=== PATIENT | male | born 1950 | race Caucasian/White ===

== ENCOUNTER → 2016-10-25 | Day surgery (SDC) | payer MEDICARE, OTHER ==
[~2016-10-25] VITALS: Ht 179.1 cm; Wt 102.8 kg
[~2016-10-25] MED LIST: *HYDROmorphone PF 1 MG VIAL PERIprocedural Use ONLY ONE; *RESP: ALBUTEROL 2.5 MG/3 ML NEB (PRN) PERIprocedural Use ONLY NEB ONE; *morphine SULFATE 8 MG/ML PERIprocedure ONLY ONE; ACETAMINOPHEN 1000 MG/100 ML VIAL IV ONE; ACETAMINOPHEN/HYDROcodone 325 MG/7.5 MG TAB PO PRN; BUPIVACAINE/EPINEPHRINE 0.25% PF 10 ML VIAL ONE; CHLORHEXIDINE GLUCONATE 2 % 1 PACK (2 CLOTHS) TOPICAL PRN; CHLORHEXIDINE GLUCONATE 4% SOLN 120 ML BTL TOPICAL SCH; FAMOTIDINE 20 MG/2 ML VIAL ONE; GENTAMICIN SULFATE 80 MG/2 ML VIAL ONE; HYDR-3288 PO; INSULIN HUMAN REGULAR 1,000 UNITS/10 ML VIAL SQ PRN; KETOROLAC TROMETHAMINE 30 MG/ML (IVP) VIAL IV PUSH ONE; KETOROLAC TROMETHAMINE 60 MG/2 ML (IM) VIAL IM ONE; LACTATED RINGER'S 1000 ML INJ 1,000 ML IV ONE; LACTATED RINGER'S 1000 ML INJ 1,000 ML ONE; LACTATED RINGER'S 1000 ML IV PRN; METOPROLOL TARTRATE 25 MG TAB PO PRN; MIDAZOLAM HCL 2 MG/2 ML VIAL ONE; MORPHINE SULFATE 4 MG/ML INJ IV PUSH PRN; NEOSTIGMINE 3 MG/3 ML SYR IV ONE; ONDANSETRON HCL 4 MG/2 ML VIAL IV PUSH ONE; PERC10TA27 PO; POVIDONE IODINE 5% (ANTISEPSIS KIT) 4 APPLICATIONS EACH NARE PRN; PROPOFOL 200 MG/20 ML AMP IV ONE; SODIUM CHLOR 0.9% 250 ML INJ 250 ML ONE; SODIUM CHLORID 0.9% 500 ML IV PRN; SODIUM CHLORIDE 0.9% FLUSH 10 ML FLUSH IV FLUSH PRN; SODIUM CHLORIDE 0.9% FLUSH 10 ML FLUSH IV FLUSH SCH; VANCOMYCIN 1000 MG/NS 250 ML (for <70 kg) IV SCH; VANCOMYCIN HCL 1000 MG VIAL ONE; ceFAZolin 2 GM PREMIX 50 ML IV SCH; ceFAZolin 2 GM PREMIX 50 ML ONE; ePHEDrine/NS 25 MG/5 ML SYR IV ONE; fentaNYL CITRATE 250 MCG/5 ML AMP ONE
[2016-10-25 06:08] VITALS: BP 149/81; PULSE 57; RESP 18; TEMP 98; O2SAT 98
--- NOTE | 2016-10-25 08:47 | PD.OP ---
cc: Ranjan Hernandez MD Operative Report Date of Surgery: Oct 25, 2016 Preoperative Diagnosis: Painful hardware left proximal tibia Postoperative Diagnosis: Procedure: Removal deep hardware left tibia Anesthesia: Gen. Surgeon: Ranjan Hernandez [employer]atch Plant Supervisor(s): YANI Nunez PA-C The surgical procedure was assisted by my physician human resources office assistant. My P.A. presence was necessary throughout this case for the manipulation and positioning of the surgical extremity. My P.A. was assisting me throughout the duration of this procedure. The skill set of a physician human resources office assistant was medically necessary to complete this procedure. During the surgical case the surgical scrub technician was working at the back table and the physician human resources office assistant was directly assisting me. Operation and Findings: Dewayne is known to me from previous open reduction internal fixation left tibial plateau fracture. He has developed significant pain around the hardware. He is also developing left knee osteoarthritis. He understands he may need a total knee arthroplasty in the future. Patient wished to have hardware removed to help with hardware pain as well as for possible preparation for future total knee replacement. Informed consent was confirmed. Operative site was marked. He was brought to operating room. He was given IV sedation and general anesthesia. He received IV antibiotics. Left leg was prepped with alcohol followed by Hibiclens and draped usual sterile fashion. Timeout procedure was performed. Procedure began with a 4 inch incision through the proximal surgical scar. Subcutaneous tissue dissected with Bovie. Iliotibial band was split in line with fibers. The proximal hardware was now exposed. Scar tissue was incised around the plate. Each of the screws was now loosened using a screwdriver. A drill was now used to remove the proximal screws. Multiple per case incisions were made over the distal shaft screws. Fluoroscopy was used to help localize the screws. Screws were again reduced with a screwdriver. Screws were now removed with the drill. Osteotomes were used to elevate the plate. The plate was now removed. Fluoroscopy confirmed that all hardware had been removed. Incision was thoroughly irrigated. Fascia was closed with #1 Vicryl, subcutaneous tissues closed with 3-0 Vicryl and skin was closed with jimena. Sterile dressings were applied. Patient was transferred to recovery room in stable condition. Needle sponge counts were correct. Ranjan Hernandez MD Oct 25, 2016 08:47
--- NOTE | 2016-10-25 09:09 | RADRPT ---
EXAM DATE/TIME: 10/25/2016 08:32 [facility] COMPARISON: No previous studies available for comparison. INDICATIONS : Left tibia/fibula hardware removal. MEDICAL HISTORY : None. SURGICAL HISTORY : None. ENCOUNTER: Initial ACUITY: 1 day PAIN SCORE: Non-responsive. LOCATION: Left Tibia/Fibula FINDINGS: Status post hardware removal. There is anatomic alignment without fracture. CONCLUSION: Status post hardware removal. Maurilio Julien MD FACR on October 25, 2016 at 9:06 Board Certified Radiologist. This report was verified electronically.
[2016-10-25 11:20] VITALS: BP 151/84; PULSE 62; RESP 16; TEMP 97.6; O2SAT 96
--- NOTE | 2016-10-25 22:20 | EKG ---
Date Performed: 10/25/2016 Time Performed: 06:04:00 PTAGE: 66 years EKG: Sinus bradycardia Normal ECG except for rate PREVIOUS TRACING : 04/30/2015 04.17 Compared to prior tracing no significant change DOCTOR: Sam Newell Interpretating Date/Time 10/25/2016 22:19:04
== END | disposition home or self-care (01) ==
LOC: HSDC 05:37
PROVIDERS: ATTEND Orthopaedic Surgery Orthopaedic Trauma
DX: T84.84XA Pain due to internal orthopedic prosthetic devices, implants and grafts, initial encounter (principal); Y83.1 Surgical operation with implant of artificial internal device as the cause of abnormal reaction of the patient, or of later complication, without mention of misadventure at the time of the procedure; Z01.810 Encounter for preprocedural cardiovascular examination
CPT/HCPCS: 01170; 20680; 73590; 76000; 93005; J0131; J0690; J1170; J1580; J1885; J2250; J2270; J2405; J2710; J3010; J3370; J7050; J7120; J7613